=== PATIENT | male | born 1990 | race Caucasian/White ===

== ENCOUNTER 2016-11-30 22:17 | Emergency (ER) | payer OTHER ==
[~2016-11-30] VITALS: Ht 198.1 cm; Wt 97.5 kg
[2016-11-30 22:18] VITALS: BP 132/66; PULSE 86; RESP 18; TEMP 98; O2SAT 99
[2016-12-01] MEDS ORDERED: IBUPROFEN 800 MG TAB PO ONE (00:15)
[2016-12-01] MEDS ORDERED: ACETAMINOPHEN/HYDROcodone 325 MG/5 MG TAB PO ONE (00:15)
--- NOTE | 2016-12-01 00:17 | PD ---
HPI Chief Complaint: Injury Time Seen by Provider: 00:12 Travel History International Travel<30 days: No Contact w/Intl Traveler<30days: No Traveled to known affect area: No History of Present Illness HPI 26-year-old [id number] white male presents to the department with complaints of bilateral shoulder pain. He states that initially injured his left shoulder earlier this afternoon playing football. He attempted to evade a player and was hit in the left shoulder by the other opponent's helmet. He states that he had heard a pop and a crack. He states that he was taped up and went back into play. He once again injured his left shoulder as well as his right shoulder. He is having difficulty moving both arms. He has pain localizing to his left acromioclavicular joint. He also states that he's having difficulty raising up his right shoulder was able to move his arm much more freely than the left. He denies injury to his head, neck or back. No numbness, tingling or focal weakness. COUNT INCLUDES THE [facility] Past Medical History Narrative Medical Patient has had multiple orthopedic fractures. Diminished Hearing: No Musculoskeletal: Yes (BILAT ARM FX, RIGHT WRIST FX, L1 L2 FX, LEFT ORBITAL FX, RIGHT PINKY FX) Immunizations Current: Yes Tetanus Vaccination: > 5 Years Past Surgical History Narrative Surgical Exploratory laparotomy, multiple orthopedic surgeries, septoplasty Abdominal Surgery: Yes (EXPLORATORY LAP) Other Surgery: Yes (DEVIATED SEPTUM REPAIR, TUMOR REMOVED FROM LEFT FIRST FINGER) Social History Alcohol Use: Yes (RARELY) Tobacco Use: No Substance Use: No Allergies-Medications (Allergen,Severity, Reaction): Coded Allergies: No Known Allergies (Unverified , 11/30/16) Review of Systems Except as stated in HPI: all other systems reviewed are Neg Physical Exam Narrative GENERAL: Well-developed, well-nourished in no apparent distress. Nontoxic appearing. HEAD: Normocephalic, atraumatic. EYES: Pupils equal round and reactive. Extraocular motions intact. No scleral icterus. No injection or drainage. ENT: Nose clear. Throat without erythema, tonsillar hypertrophy or exudate. Uvula midline. Airway patent. NECK: Trachea midline. Supple, nontender, moves head freely. No central bony tenderness or spasm. CARDIOVASCULAR: Regular rate and rhythm without murmurs, gallops, or rubs. RESPIRATORY: Clear to auscultation. Breath sounds equal bilaterally. No wheezes , rales, or rhonchi. GASTROINTESTINAL: Abdomen soft, non-tender, nondistended. No hepato-splenomegaly , or palpable masses. No guarding. EXTREMITIES: Examination the right upper extremity reveals mild diffuse tenderness in the shoulder without joint effusion. He has full passive range of motion but has limited active range of motion. He states that he cannot raise his hand higher than 90. Negative drop test. No pain in the clavicle or acromioclavicular joint. Positive impingement testing. The left upper extremity is held in adduction. He complains of pain in the left acromioclavicular joint. No obvious deformity. He has athletic tape on his skin. No pain in the glenohumeral joint. He has very limited range of motion due to pain. There is no localizing pain in either elbows, wrists or hands. He has intact median/ulnar/radial nerves bilaterally. BACK: Nontender without deformity. No flank tenderness. NEUROLOGICAL: Awake, alert and oriented x 3 .Cranial nerves grossly intact. Motor and sensory grossly within normal limits. Normal speech. Data Data Last Documented VS Vital Signs Date Time Temp Pulse Resp B/P Pulse Ox O2 Delivery O2 Flow Rate FiO2 11/30/16 22:18 98.0 86 18 132/66 99 Room Air Orders Shoulder, Limited(2vws) (12/01/16 00:10) Shoulder, Complete (>2vws) (12/01/16 00:10) Ice/Cold Pack (12/01/16 00:10) Splint Or Brace Apply/Monitor (12/01/16 00:10) Acetamin-Hydrocod 325-5 Mg ([place] 5-325 (12/01/16 00:15) Ibuprofen (Motrin) (12/01/16 00:15) MDM Medical Decision Making Medical Screen Exam Complete: Yes Emergency Medical Condition: Yes Medical Record Reviewed: Yes Interpretation(s) Right shoulder: Negative Left shoulder: Second-degree acromioclavicular separation Differential Diagnosis MDM: High Differential diagnoses: Fracture, sprain, strain, dislocation, contusion, neurovascular injury Narrative Course Patient is placed in a sling. He is given ice packs. Lortab 5 mg and Motrin 800 mg by mouth. X-rays of the right and left shoulders. Diagnosis Primary Impression: left second degree acromioclavicular separation Additional Impression: Sprain of right shoulder Qualified Code: S43.421A - Sprain of right rotator cuff capsule, initial encounter Patient Instructions: General Instructions, Narcotic given in the ED Departure Forms: Tests/Procedures, Work Release Special Instructions: No work 5 days. Additional Instructions: Rest. Sling. Ice in the next few days. Lortab and Motrin. Follow-up with an orthopedist within the next 3-7 days. Return to the ER if any problems. Med/Other Pt SpecificInfo: Prescription(s) given Scripts Ibuprofen 800 Mg Oyl243 Mg PO Q8H PRN (Pain/Inflammation) #30 TAB Prov:Silas Huerta MD 12/01/16 Hydrocodone-Acetaminophen (Lortab)5-325 Mg Tab1 Tab PO Q4H PRN (PAIN) #20 TAB Prov:Silas Huerta MD 12/01/16 Disposition: 01 DISCHARGE HOME Condition: Stable Aris Rubio Dec 01, 2016 00:17
[2016-12-01] MEDS ORDERED: IBUP800T23 PO (00:46)
[2016-12-01] MEDS ORDERED: HYDR-3533 PO (00:46)
--- NOTE | 2016-12-01 01:09 | RADRPT ---
EXAM DATE/TIME: 12/01/2016 00:28 [facility] COMPARISON: No previous studies available for comparison. INDICATIONS : Pt was playing football and was hit in shoulder by another players helmet. Pain to both shoulders. MEDICAL HISTORY : None. SURGICAL HISTORY : None. ENCOUNTER: Initial ACUITY: 1 day PAIN SCORE: 8/10 LOCATION: Right shoulder FINDINGS: Two view examination of the right shoulder demonstrates no evidence of fracture or dislocation. The glenohumeral and acromioclavicular joints are maintained. Bony mineralization is normal. CONCLUSION: 1. Negative examination of the shoulder. Dominik Dolan MD on December 01, 2016 at 1:08 Board Certified Radiologist. This report was verified electronically.
--- NOTE | 2016-12-01 01:09 | RADRPT ---
EXAM DATE/TIME: 12/01/2016 00:26 [facility] COMPARISON: No previous studies available for comparison. INDICATIONS : Pt was playing football and was hit in shoulder by another players helmet. Pain to both shoulders. MEDICAL HISTORY : None. SURGICAL HISTORY : None. ENCOUNTER: Initial ACUITY: 1 day PAIN SCORE: 8/10 LOCATION: Left shoulder FINDINGS: Multiple view examination of the left shoulder demonstrates no evidence of fracture or dislocation. The glenohumeral and acromioclavicular joints are maintained. There is normal range of motion betwee n internal and external rotation. Bony mineralization is normal. CONCLUSION: 1. Negative examination of the shoulder. Dominik Dolan MD on December 01, 2016 at 1:07 Board Certified Radiologist. This report was verified electronically.
== END 2016-12-01 01:45 | disposition home or self-care (01) ==
LOC: NEPB 22:17
DX: S43.401A Unspecified sprain of right shoulder joint, initial encounter (principal); M25.512 Pain in left shoulder
CPT/HCPCS: 73030; 99283